=== PATIENT | female | born 1975 | race Caucasian/White ===

== ENCOUNTER 2017-08-09 13:52 | Emergency (ER) | payer OTHER, MEDICARE ==
[~2017-08-09] VITALS: Ht 162.6 cm; Wt 100.0 kg
[~2017-08-09 13:52] MED LIST: BUSP15TA PO; CLIN300C5 PO; IMIT25TA PO; LACT PO; LYRI100C PO; TRAM50TA PO; TRAZ300T2 PO; TRAZ50TA12 PO
[2017-08-09 13:55] VITALS: BP 115/58; PULSE 100; RESP 16; TEMP 98.6; O2SAT 100
[2017-08-09] MEDS ORDERED: IBUP1TAB5 PO (14:15)
[2017-08-09] MEDS ORDERED: ACETAMINOPHEN/HYDROcodone 325 MG/5 MG TAB PO ONE (14:30)
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
[2017-08-09] MEDS ORDERED: IBUP1TAB7 PO (14:56)
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
[2017-08-09] MEDS ORDERED: WALKER/ADULT/FO1 MIS (14:58)
== END 2017-08-09 15:12 | disposition home or self-care (01) ==
LOC: NEPK 13:52
DX: S99.912A Unspecified injury of left ankle, initial encounter (principal); S99.922A Unspecified injury of left foot, initial encounter; W18.09XA Striking against other object with subsequent fall, initial encounter; F32.9 Major depressive disorder, single episode, unspecified; Z86.73 Personal history of transient ischemic attack (TIA), and cerebral infarction without residual deficits; Z88.8 Allergy status to other drugs, medicaments and biological substances; Z79.899 Other long term (current) drug therapy
CPT/HCPCS: 73610; 73630; 99283; E0113; L1906